=== PATIENT | female | born 1980 | race Caucasian/White ===

== ENCOUNTER → 2023-07-10 08:56 | Outpatient (CLI) | payer OTHER, MEDICAID, SELFPAY ==
[2023-07-10 10:23] LABS: Iron 98 ug/dL (37-170)
[2023-07-10 10:27] LABS: Rheumatoid Factor < 8.6 IU/mL (<12.0)
[2023-07-10 10:28] LABS: Vitamin D 25 Hydroxy (D3) 40.7 ng/mL (30.0-100.0)
[2023-07-10 10:33] LABS: Free T3, Triiodothyronine Free 3.17 pg/mL (2.77-5.27)
[2023-07-10 11:21] LABS: Folate > 20.0 ng/mL (2.76-20.0); Vitamin B12 782 pg/mL (239-931)
[2023-07-11 15:13] LABS: Anti Thyroglobulin Antibody <1.0 IU/mL (0.0-0.9); Thyroid Peroxidase Antibodies 15 IU/mL (0-34)
[2023-07-13 19:44] LABS: ANA Screen, IFA Negative (.)
== END ==
PROVIDERS: PCP Family Medicine; Referring Provider Family Medicine; Visit Provider Family Medicine
DX: R63.5 Abnormal weight gain (principal); R53.83 Other fatigue; J45.909 Unspecified asthma, uncomplicated
CPT/HCPCS: 36415; 82306; 82607; 82746; 83540; 84443; 84481; 86038; 86376; 86430; 86800

== ENCOUNTER → 2023-07-19 14:04 | Outpatient (CLI) | payer OTHER, MEDICAID, SELFPAY ==
[2023-07-19 16:53] LABS: Follicle Stimulating Hormone 10.2 mIU/mL; Luteinizing Hormone 5.65 mIU/mL
[2023-07-19 17:08] LABS: Estradiol, Total 30.5 pg/mL
== END ==
PROVIDERS: PCP Family Medicine; Referring Provider Family Medicine; Visit Provider Family Medicine
DX: R53.83 Other fatigue (principal); E66.9 Obesity, unspecified
CPT/HCPCS: 36415; 82670; 83001; 83002

== ENCOUNTER → 2023-09-04 08:39 | Outpatient (CLI) | payer OTHER, MEDICAID, SELFPAY ==
[2023-09-04 11:17] LABS: Cortisol AM (Before 10AM) 3.97 ug/dL (4.46-22.7)
== END ==
PROVIDERS: PCP Family Medicine; Referring Provider Family Medicine; Visit Provider Family Medicine
DX: R63.5 Abnormal weight gain (principal); R53.83 Other fatigue; J45.909 Unspecified asthma, uncomplicated
CPT/HCPCS: 36415; 82533

== ENCOUNTER → 2023-09-12 08:48 | Outpatient (CLI) | payer OTHER, MEDICAID, SELFPAY ==
--- NOTE | 2023-09-12 08:48 | DI.US.S_ITS ---
PROCEDURE: US SOFT TISSUE HEAD AND NECK INDICATIONS: Lump of neck TECHNIQUE: Real-time scanning was performed of the neck region of interest, with image documentation. COMPARISON: None. FINDINGS: At the area of interest, there is a small subcutaneous hypoechoic nodule measuring 0.8 x 0.2 x 0.9 mm just anterior to the thymic isthmus. No vascularity. IMPRESSION: Subcentimeter subcutaneous nodule probably reflects a small subcutaneous lymph node. Consider clinical follow-up to assure stability or resolution Approved by: Jason Baker M.D. on 09/12/2023 at 12:42
== END ==
LOC: US 08:48
PROVIDERS: PCP Family Medicine; Referring Provider Family Medicine; Visit Provider Family Medicine
DX: R63.5 Abnormal weight gain (principal); R53.82 Chronic fatigue, unspecified; R22.1 Localized swelling, mass and lump, neck
CPT/HCPCS: 76536

== ENCOUNTER → 2023-10-06 09:57 | Outpatient (CLI) | payer OTHER, MEDICAID, SELFPAY ==
[2023-10-06 11:44] LABS: Prolactin 14.1 ng/mL (3.0-18.6)
== END ==
LOC: LAB 09:58
PROVIDERS: PCP Family Medicine; Referring Provider Family Medicine; Visit Provider Family Medicine
DX: R51.9 Headache, unspecified (principal)
CPT/HCPCS: 36415; 84146

== ENCOUNTER → 2023-10-10 11:57 | Outpatient (CLI) | payer OTHER, MEDICAID, SELFPAY ==
[2023-10-10 12:43] LABS: Add Manual Diff / Slide Review NO; Basophils Absolute Auto 100 /uL (0-100); Basophils Percent Auto 0.9 % (0-2); Eosinophils Absolute Auto 300 /uL (0-450); Eosinophils Percent Auto 2.2 % (2-4); Hematocrit 37.8 % (36-46); Hemoglobin 12.7 g/dL (12.0-16.0); Lymphocytes Absolute Auto 2900 /uL (1100-4500); Lymphocytes Percent Auto 25.2 % (25-40); Mean Corpuscular HGB Conc 33.6 % (30-36); Mean Corpuscular Hemoglobin 30.7 PG (26-34); Mean Corpuscular Volume 91.3 fL (80-100); Monocytes Absolute Auto 500 /uL (0-900); Monocytes Percent Auto 4.4 % (3-14); Neutrophils Absolute Auto 7900 /uL (1500-7000); Neutrophils Percent Auto 67.3 % (50-75); Platelet Count 256 X10^3/uL (150-400); Red Blood Cell Count 4.15 X10^6/uL (4.0-5.2); Red Cell Distribution Width 12.7 % (11.6-14.8); White Blood Cell Count 11.7 X10^3/uL (4.5-11.0)
[2023-10-10 13:15] LABS: Alanine Aminotransferase 13 IU/L (<35); Albumin Globulin Ratio 1.5 (1.0-2.8); Alkaline Phosphatase 77 U/L (38-126); Aspartate Aminotransferase 20 IU/L (14-36); BUN Creatinine Ratio 7.7 (6-22); Bilirubin Total 0.9 mg/dL (0.2-1.3); Blood Urea Nitrogen 4 mg/dL (7-17); Calcium 9.1 mg/dL (8.4-10.2); Carbon Dioxide 27 mmol/L (22-32); Chloride 107 mmol/L (98-107); Estimated Glomerular Filt Rate > 60 mL/min (>60); Globulin 2.7 g/dL (1.7-4.1); Glucose 79 mg/dL (70-100); HEMOLYSIS < 15 (0-50); Potassium 3.9 mmol/L (3.4-5.1); Sodium 139 mmol/L (137-145); Total Protein 6.7 g/dL (6.3-8.2)
== END ==
PROVIDERS: PCP Family Medicine; Referring Provider Student in an Organized Health Care Education/Training Program; Visit Provider Student in an Organized Health Care Education/Training Program
DX: R59.1 Generalized enlarged lymph nodes (principal)
CPT/HCPCS: 36415; 80053; 85025

== ENCOUNTER → 2023-10-24 08:48 | Outpatient (CLI) | payer OTHER, MEDICAID, SELFPAY ==
--- NOTE | 2023-10-24 08:50 | DI.US.S_ITS ---
ULTRASOUND OF LEFT BREAST AND AXILLA: 10/24/2023 CLINICAL: Palpable left axilla lump. Comparison is made to exam dated: 10/24/2023 mammogram - [facility]. Real-time ultrasound of the left breast axilla was performed. Turner scale images of the real-time examination were reviewed. No significant abnormalities were seen sonographically in the left axilla. IMPRESSION: NEGATIVE There is no sonographic evidence of malignancy. There is no abnormality seen in the left axilla to correspond with the palpable abnormality in the left axilla, however, clinical followup is recommended. A 1 year screening mammogram is recommended. This exam was interpreted at Station ID: [id number]. Electronically Signed By: Chuck [email or web address]:10/24/2023 20:09:04 Ultrasound BI-RADS: 1 Negative
--- NOTE | 2023-10-24 08:50 | DI.MG.S_ITS ---
BILATERAL DIGITAL DIAGNOSTIC MAMMOGRAM 3D/2D: 10/24/2023 CLINICAL: Generalized enlarged Lymph nodes. Baseline. No prior exams were available for comparison. There are scattered areas of fibroglandular density in both breasts (category b / 25%-50% glandular tissue). No significant masses, calcifications, or other findings are seen in either breast. IMPRESSION: INCOMPLETE: NEEDS ADDITIONAL IMAGING EVALUATION There is no abnormality seen in either axilla to correspond with the palpable abnormality in axillae, however, ultrasound is recommended. Based on the Tyrer Cuzick model (a risk assessment model) the patient's lifetime risk is 6.6% and her 10 year risk is 1.0%. According to the ACR, ACS, and NCCN guidelines, an annual breast MRI exam along with mammogram is recommended if the patient's lifetime risk is 20% or greater. This exam was interpreted at Station ID: [id number]. NOTE: For mammograms, a report in lay terms will be sent to the patient. Approximately 15% of breast malignancies will not be visualized mammographically. In the management of a palpable breast mass, a negative mammogram must not discourage biopsy of a clinically suspicious lesion. Electronically Signed By: Chuck [email or web address]:10/24/2023 20:06:30 ACR BI-RADS Category 0: Incomplete [id number]
--- NOTE | 2023-10-24 08:50 | DI.US.S_ITS ---
ULTRASOUND OF RIGHT BREAST AND AXILLA: 10/24/2023 CLINICAL: Palpable right axilla lump. Comparison is made to exam dated: 10/24/2023 mammogram - [facility]. Real-time ultrasound of the right breast axilla was performed. Turner scale images of the real-time examination were reviewed. No significant abnormalities were seen sonographically in the right axilla. IMPRESSION: NEGATIVE There is no sonographic evidence of malignancy. There is no abnormality seen in the right axilla to correspond with the palpable abnormality in the right axilla, however, clinical followup is recommended. A 1 year screening mammogram is recommended. This exam was interpreted at Station ID: [id number]. Electronically Signed By: Chuck [email or web address]/ricky:10/24/2023 20:07:56 letter sent: Clinical Evaluation Ultrasound BI-RADS: 1 Negative
== END ==
LOC: MAMMO 08:49
PROVIDERS: PCP Family Medicine; Referring Provider Family Medicine; Visit Provider Family Medicine
DX: R92.2 Inconclusive mammogram (principal); R59.1 Generalized enlarged lymph nodes; R92.323 Mammographic fibroglandular density, bilateral breasts
CPT/HCPCS: 76882; 77066; G0279

== ENCOUNTER → 2023-11-22 08:23 | Oncology outpatient (ONC) | payer OTHER, MEDICAID, SELFPAY ==
[2023-11-22] MEDS: COSYNTROPIN 0.25 MG VIAL IV (09:05)
[2023-11-22 09:09] VITALS: BP 121/75; PULSE 52; RESP 16; TEMP 36.8; O2SAT 98
[2023-11-22 09:25] VITALS: BP 125/76; PULSE 57
[2023-11-22 11:20] LABS: Cortisol 30 MIN Post Stim. 17.6 ug/dL; Cortisol Basline for Stim. 5.82 ug/dL
[2023-11-22 11:21] LABS: Cortisol 60 MIN Post Stim. 19.5 ug/dL
== END ==
LOC: ONC 08:26
PROVIDERS: PCP Family Medicine; Referring Provider Family Medicine; Visit Provider Family Medicine
DX: R59.1 Generalized enlarged lymph nodes (principal)
CPT/HCPCS: 36415; 76536; 96374; J0834

== ENCOUNTER → 2023-11-22 10:16 | Outpatient (CLI) | payer OTHER, MEDICAID, SELFPAY ==
--- NOTE | 2023-11-22 10:18 | DI.US.S_ITS ---
PROCEDURE: US SOFT TISSUE HEAD AND NECK INDICATIONS: Generalized enlarged lymph nodes TECHNIQUE: Real-time scanning was performed of the neck region of interest, with image documentation. COMPARISON: [facility], US, US SOFT TISSUE HEAD AND NECK, 09/12/2023, 9:05. FINDINGS: Circumscribed hypoechoic structure again seen in the subcutaneous tissues at the palpable area of concern measuring 0.6 x 0.6 x 0.2 cm. This appears to correspond to the previous sonographic finding in this location measuring 0.7 x 0.8 x 0.1 mm on 09/12/2023. IMPRESSION: Small hypoechoic lesion in the subcutaneous tissues at the palpable area of concern, which has not significantly changed in size when compared to the ultrasound from 09/12/2023 and again is most likely a small lymph node versus possibly a lipoma. Approved by: Chuck Mendoza M.D. on 11/22/2023 at 15:56
== END ==
LOC: US 10:17
PROVIDERS: PCP Family Medicine; Referring Provider Family Medicine; Visit Provider Family Medicine
DX: R59.1 Generalized enlarged lymph nodes (principal)
CPT/HCPCS: 76536

== ENCOUNTER → 2023-12-08 07:38 | Outpatient (CLI) | payer OTHER, MEDICAID, SELFPAY ==
[2023-12-08 09:00] LABS: Prolactin 14.4 ng/mL (3.0-18.6)
[2023-12-08 09:01] LABS: Luteinizing Hormone 1.65 mIU/mL
[2023-12-08 09:02] LABS: Free T4, Direct Thyroxine 0.99 ng/dL (0.78-2.19)
[2023-12-08 09:16] LABS: Estradiol, Total 62.4 pg/mL; Thyroid Stimulating Hormone 1.26 uIU/mL (0.47-4.68)
== END ==
PROVIDERS: PCP Family Medicine; Referring Provider Student in an Organized Health Care Education/Training Program; Visit Provider Student in an Organized Health Care Education/Training Program
DX: R79.89 Other specified abnormal findings of blood chemistry (principal)
CPT/HCPCS: 36415; 82024; 82627; 82670; 83001; 83002; 84146; 84402; 84403; 84439; 84443